=== PATIENT | female | born 2000 | race Two or more races ===

== ENCOUNTER 2024-10-22 22:14 | Emergency (ER) | payer OTHER, SELFPAY ==
[2024-10-22 22:14] VITALS: BMI 32.9
[2024-10-22 22:49] VITALS: BP 111/77; PULSE 87; RESP 18; TEMP 36.9; O2SAT 99
--- NOTE | 2024-10-22 22:53 | PD.EDRME ---
Rapid Medical Screening Exam RME Arrival date/time: 10/22/24 22:14 24-year-old female presents emergency department complaining of epigastric pain that radiates to her back and has been ongoing for several weeks. Chief Complaint: Abdominal Pain Time Seen by Provider: 10/22/24 22:50 Vital signs: Vital Signs Temperature 98.5 F 10/22/24 22:49 Pulse Rate 87 10/22/24 22:49 Respiratory Rate 18 10/22/24 22:49 Blood Pressure 111/77 10/22/24 22:49 Pulse Oximetry (%) 99 10/22/24 22:49 Oxygen Delivery Method Room Air 10/22/24 22:49 Vital signs reviewed by provider: Yes
[2024-10-22 23:34] LABS: Basophils # (Auto) 0.1 Thou/mm3 (0.0-0.2); Basophils % (Auto) 1 % (0-2.5); Eosinophils # (Auto) 0.1 Thou/mm3 (0.0-0.5); Eosinophils % (Auto) 1 % (0-10); Hematocrit 37.5 % (36.0-46.0); Immature Granulocytes % (Auto) 1 % (0-0); Immature Granulocytes Auto 0.04 Thou/mm3 (0.00-0.00); Lymphocytes # (Auto) 2.7 Thou/mm3 (1.0-4.8); Lymphocytes % (Auto) 31 % (10-50); Mean Corpuscular Hemoglobin 25.6 pg (25.0-35.0); Mean Corpuscular Volume 80 fL (80-100); Monocytes # (Auto) 0.7 Thou/mm3 (0.0-0.8); Monocytes % (Auto) 8 % (0-12); Neutrophils # (Auto) 5.1 Thou/mm3 (1.8-7.7); Neutrophils % (Auto) 60 % (37-80); Nucleated Red Blood Cell % 0 /100 WBC (0); Platelet Count 384 Thou/mm3 (140-440); RDW Standard Deviation 39.4 fL (36.4-46.3); Red Blood Count 4.69 Miln/mm3 (4.00-5.20); White Blood Count 8.6 Thou/mm3 (3.6-11.0)
[2024-10-22 23:36] LABS: Collection Type, Urine Clean Catch
[2024-10-22 23:43] LABS: Bacteria,Urine Rare; Bilirubin,Urine Negative (Negative); Blood,Urine Trace (Negative); Clarity,Urine Clear (Clear/Hazy); Color,Urine Yellow (Lt Yel-Yel); Culture Indicated,Urine Not Indicated; Glucose, Urine Negative (Negative); Ketones,Urine Trace (Negative); Leukocyte Esterase,Urine Negative (Negative); Nitrite,Urine Negative (Negative); PH,Urine 5.5 (5.0-7.0); Protein,Urine Trace (Neg - Trace); RBC,Urine 2 /hpf (0-3); Specific Gravity,Urine 1.038 (1.001-1.035); Squamous Epithelial Cell,Urine < 1 /hpf (0-5); Urobilinogen,Urine Negative mg/dL (0.0-1.0); WBC,Urine 1 /hpf (0-5)
[2024-10-22 23:45] LABS: HCG,Qualitative Serum Negative
[2024-10-22 23:52] LABS: Alanine Aminotransferase 22 U/L (10-49); Albumin, Serum 4.7 gm/dL (3.5-5.0); Albumin/Globulin Ratio 1.7 (1.2-2.2); Alkaline Phosphatase 115 U/L (46-116); Anion Gap 7 (7-16); Aspartate Amino Transferase 15 U/L (0-34); BUN/Creatinine Ratio 10 Ratio (12-20); Bilirubin,Total 0.3 mg/dL (0.3-1.2); Blood Urea Nitrogen 9 mg/dL (9-23); Calcium 10.1 mg/dL (8.3-10.6); Calcium (Corrected) 10.1 mg/dL (8.5-10.1); Carbon Dioxide 26.6 mMol/L (20.0-31.0); Chloride 105 mMol/L (98-107); Creatinine (Component) 0.9 mg/dL (0.6-1.3); Estimated Creatinine Clearance 97.1 mL/min (>60); Globulin 2.8 gm/dL (2.3-3.5); Glucose 98 mg/dL (74-106); Lipase 38 U/L (12-53); Osmolality,Calculated 276 (275-295); Potassium 3.4 mMol/L (3.4-5.1); Sodium 139 mMol/L (136-145); Total Protein 7.5 gm/dL (5.7-8.2); eGFR > 60 See Note
--- NOTE | 2024-10-23 00:05 | XR_ITS ---
Examination: Abdomen sonogram, Limited Date and time of exam: October 23, 2024 0112 hrs. Indications: Right upper abdominal pain beginning 2 weeks ago Technique: Real-time baldwin scale transabdominal sonographic images of the upper abdomen obtained. Findings: Negative for cholelithiasis Gallbladder wall 0.3 cm no edema Common bile duct 0.46 cm Pancreas obscured by bowel gas Liver 15.8 cm no liver lesions Normal hepatopedal portal venous flow Patent IVC Impression: Normal gallbladder Normal common bile duct
--- NOTE | 2024-10-23 02:19 | PRELIM_ITS ---
Gallbladder ultrasound with doppler and wave doppler spectral analysis. October 23, 2024 0112 hours Clinical history: Abdominal pain Comparison: None.Findings:Echogenic liver. Gallbladder wall thickeni ng. No gallbladder calculus or pericholecystic fluid is identified. The common duct is normal in johnnie citlalli at 4.6 mm. No free fluid is demonstrated on the submitted images.The portal vein is patent with h epatopetal flow and normal wave Doppler spectral analysis.The inferior vena cava is patent.House sig n is not available at the time of this report.Impression:Liver steatosis.Gallbladder wall thickening, if acute cholecystitis is clinically suspected consider correlation with HIDA scan. Report Bárbara espinoza Signed By: Nick Ko 10/23/2024 2:17:26 AM [EST]
--- NOTE | 2024-10-23 02:35 | PD.EDABDPN ---
ED Abdominal Pain RME/HPI General Chief Complaint: Abdominal Pain Stated complaint: GALLSTONES PAIN Time seen by provider: 10/22/24 22:50 Arrival date/time: 10/22/24 22:14 24-year-old female presents emergency department complaining of epigastric pain that radiates to her back and has been ongoing for several weeks. Source: patient Mode of arrival: ambulatory Limitations: no limitations RME / HPI RME / HPI narrative: 10/22/24 22:14 24-year-old female presents emergency department complaining of epigastric pain that radiates to her back and has been ongoing for several weeks. Related Data Home Medications ?Medication ?Instructions ?Recorded ?Confirmed vits no.124-ferrous fum 1 tab PO QDAY 12/17/23 12/20/23 27 mg iron-folic acid 800 mcg tablet ( Vitamin) Previous Rx's ?Medication ?Instructions ?Recorded ibuprofen 600 mg tablet 600 mg PO Q8H PRN pain #20 tabs 10/23/24 Allergies Allergy/AdvReac Type Severity Reaction Status Date / Time No Known Allergies Allergy Verified 12/17/23 17:46 Review of Systems Review of Systems Systems Reviewed: All systems reviewed, normal except as documented Constitutional Constitutional: Reports system reviewed and no additional complaints, except as documented, Denies body ache(s), Denies chills and Denies fever(s) Eyes Eyes: Reports system reviewed and no additional complaints, except as documented and Denies change in vision ENT Ears, Nose, Mouth, and Throat: Reports system reviewed and no additional complaints, except as documented, Denies disequilibrium, Denies dizziness, Denies sore throat and Denies vertigo Cardiovascular Cardiovascular: Reports system reviewed and no additional complaints, except as documented, Denies chest pain and Denies dyspnea Respiratory Respiratory: Reports system reviewed and no additional complaints, except as documented, Denies chest congestion, Denies cough and Denies dyspnea Gastrointestinal Gastrointestinal: Reports system reviewed and no additional complaints, except as documented, Reports abdominal pain, Denies nausea and Denies vomiting Musculoskeletal Musculoskeletal: Reports system reviewed and no additional complaints, except as documented, Denies abnormal gait and Denies arthralgias Integumentary/Breasts Skin/Breast: Reports system reviewed and no additional complaints, except as documented, Denies erythema, Denies rash and Denies wounds Neurologic Neurologic: Reports system reviewed and no additional complaints, except as documented, Denies abnormal gait, Denies disequilibrium, Denies dizziness and Denies vertigo Past Medical History Past Medical History NEUROLOGIC: Negative Neurological Disorders or Seizures CARDIAC: Negative Cardiac Disorders or Congestive Heart Failure RESPIRATORY: Negative Chronic Obstructive Pulmonary Disease (COPD) GASTROINTESTINAL: Negative Gastrointestinal Disorders or Hepatitis GENITOURINARY: Negative Genitourinary Disorders or Renal Disease MUSCULOSKELETAL: Negative Musculoskeletal Disorders ENDOCRINE: Negative Endocrine Disorders, Diabetes Mellitus Type 1 or Diabetes Mellitus Type 2 HEMATOLOGIC: Negative Blood Disorders PSYCHO/SOCIAL: Positive Depression and Anxiety OTHER HISTORY: Negative Autoimmune Disease, Blood Transfusions, Blood Transfusion Reaction, Anesthesia Reactions, Human Immunodeficiency Virus (HIV), Chicken Pox, Measles, Mumps, Rubella (Qatari Measles), Pertussis or Clostridium Difficile Family History FAMILY HISTORY: Positive Family Cardiac Disorders (maternal grandmother - heart condition unk); Negative Family Psychiatric Problems, Family Respiratory Disorders, Family Gastrointestinal Problems, Family Cancer or Family Surgery Surgical History SURGICAL: Negative Section Social History SMOKING STATUS: Never smoker ED Exam General Limitations: Present no limitations General appearance: Present alert and in no apparent distress Head Head exam: Present atraumatic Eye Eye exam: Present normal appearance, PERRL and EOMI ENT ENT exam: Present normal exam, normal oropharynx and mucous membranes moist Neck Neck exam: Present normal inspection, full ROM and trachea midline Chest Chest inspection: Present normal inspection and symmetric chest wall rise Respiratory Respiratory exam: Present normal lung sounds bilaterally Cardiovascular Cardiovascular exam: Present regular rate, normal rhythm and normal heart sounds Abdominal Exam Abdominal exam: Present soft and normal bowel sounds; Absent tenderness or guarding Extremities Exam Extremities exam: Present normal inspection and full ROM Back Exam Back exam: Present normal inspection and full ROM Neurological Exam Neurological exam: Present alert, oriented X3 and CN II-XII intact Psychiatric Psychiatric exam: Present normal affect and normal mood Skin Skin exam: Present warm, dry, intact and normal color Course Quality Measures none Orders Category Date Time Status US gall bladder Stat Exams 10/23/24 00:05 Taken CBC Stat Lab 10/22/24 23:04 Completed CMP [Comprehensive Metabolic Panel] Stat Lab 10/22/24 23:04 Completed HCG,Qualitative Serum Stat Lab 10/22/24 23:04 Completed Lipase Stat Lab 10/22/24 23:04 Completed Urinalysis, C/S if Indicated Stat Lab 10/22/24 23:30 Completed Vital Signs Vital signs: Vital Signs Temperature 98.5 F 10/22/24 22:49 Pulse Rate 87 10/22/24 22:49 Respiratory Rate 18 10/22/24 22:49 Blood Pressure 111/77 10/22/24 22:49 Pulse Oximetry (%) 99 10/22/24 22:49 Oxygen Delivery Method Room Air 10/22/24 22:49 99% room air within normal limits Abdominal Pain MDM MDM Narrative MDM Narrative:: 24-year-old female presents emergency department complaining of epigastric pain that radiates to her back and has been ongoing for several weeks. CBC was unremarkable for any leukocytosis. CMP was unremarkable for any elevated LFTs or gross electrolyte abnormalities. Urinalysis was unremarkable. Ultrasound gallbladder was unremarkable for any gallstones. Patient appears nontoxic and is hemodynamically stable. Patient discharged ducted to follow-up with primary care provider return to emergency department for any worsening symptoms as needed. Patient data External records reviewed:: [facility] previous records Clinical information provided by:: patient Social determinants that could affect healthcare access:: none Patient has the following chronic illnesses:: See chart How is presenting disease/condition affected by chronic disease/condition?: uneffected by Evaluation data The following diagnostics were reviewed and interpreted by me:: lab results and radiology exam(s) Lab and/or radiology exams considered but not ordered:: Ordered Interpretation Summary: Interpreted by me Medications / Prescriptions Medications or Prescriptions considered but not ordered:: N/A Medication administrations:: N/A Consultations Consultation(s) initiated? (list below): No Diagnosis Differential diagnosis abdominal pain: abdominal pain, acute appendicitis, calculus of kidney, constipation, diverticulitis, endometriosis, gastroenteritis, pancreatitis and small bowel obstruction Most likely diagnosis given after review of the tests above:: Abdominal pain Admission Indicated Admission indicated?: not indicated Admission Request Was there a request for admission?: No Disposition Plan Disposition Plan: Discharge Discharge Attestation Discharge Attestation: The patient and all family members were given an opportunity to ask questions and understood the discharge instructions. Discharge instructions specifically effects, indications for sooner follow up or return to the emergency department, and the expected course of current diagnosis. Patient condition: Stable Discharge Plan Plan Patient Disposition: HOME (Self Care) Disposition Comment: Stable Prescriptions/Referrals Prescriptions/Med Rec: New ibuprofen 600 mg tablet 600 mg PO Q8H PRN (Reason: pain) Qty: 20 0RF No Action Vitamin 27 mg iron- 800 mcg Tablet 1 tab PO QDAY Referrals: Saul Olivarez MD [Primary Care Provider] - In 1 week Problem List Clinical Impression: Abdominal pain Patient/Caregiver Discharge Instructions Discharge Activity: activity as tolerated Education Materials: Abdominal Pain Additional Instructions: Your ultrasound did not show any gallbladder stones. Take ibuprofen or Tylenol as needed for pain. Follow-up with primary care provider and request H. pylori testing or referral to GI specialist if symptoms persist. Return to emergency department for any worsening symptoms or as needed. Print Language: Irish Stand Alone Forms: Lyly Award Info., Patient Portal Info Letter PA/MOBILE HEAVY EQUIPMENT OPERATOR Supervising Physician PA/MOBILE HEAVY EQUIPMENT OPERATOR Supervising Physician: Dr. Wolfe
[2024-10-23 02:47] VITALS: BP 116/72; PULSE 76; RESP 18; TEMP 36.7; O2SAT 98
== END 2024-10-23 02:48 | disposition home or self-care (01) ==
PROVIDERS: Emergency Provider Emergency Medicine; PCP Family Medicine
DX: R10.13 Epigastric pain (principal)
CPT/HCPCS: 36415; 76705; 80053; 81001; 83690; 84703; 85025; 99284

== ENCOUNTER 2024-10-25 18:07 | Emergency (ER) | payer OTHER, SELFPAY ==
--- NOTE | 2024-10-25 18:33 | XR_ITS ---
Examination: CT abdomen and pelvis without contrast. Coronal 3-D reconstructions. Sagittal 2-D reconstructions. Date and time of exam: October 25, 2024 1952 hrs. Indications: Onset flank pain radiating to the abdomen beginning 2 weeks ago CTDI: vol (mGy): 12.8 DLP: (mGycm): 745 Technique: Axial images of the abdomen have been obtained, 3 mm slice thickness Intravenous contrast material has not been administered. Low dose protocols were performed. One or more of the following dose reduction techniques were used; automated exposure control, adjustment of the mA and/or KV according to patient size, use of iterative reconstruction technique. Findings: No focal liver or splenic lesions No gallstones No pancreatic or adrenal mass No renal or ureteral calculi, no hydronephrosis Aorta normal size No bowel obstruction Normal appendix No diverticulitis No pelvic mass Osseous structures intact Impression: No renal or ureteral calculi, no hydronephrosis Normal appendix No bladder mass or bladder calculi
[2024-10-25 19:01] VITALS: BP 129/71; PULSE 87; RESP 20; TEMP 37.2; O2SAT 99
[2024-10-25 19:03] LABS: Basophils # (Auto) 0.1 Thou/mm3 (0.0-0.2); Basophils % (Auto) 0 % (0-2.5); Eosinophils # (Auto) 0.1 Thou/mm3 (0.0-0.5); Eosinophils % (Auto) 0 % (0-10); Hematocrit 36.8 % (36.0-46.0); Hemoglobin 11.7 g/dL (12.0-16.0); Immature Granulocytes % (Auto) 0 % (0-0); Immature Granulocytes Auto 0.06 Thou/mm3 (0.00-0.00); Lymphocytes # (Auto) 1.7 Thou/mm3 (1.0-4.8); Lymphocytes % (Auto) 13 % (10-50); Mean Corpuscular HGB Conc 31.8 g/dl (31.0-37.0); Mean Corpuscular Hemoglobin 25.7 pg (25.0-35.0); Mean Corpuscular Volume 81 fL (80-100); Monocytes # (Auto) 0.9 Thou/mm3 (0.0-0.8); Monocytes % (Auto) 7 % (0-12); Neutrophils # (Auto) 10.8 Thou/mm3 (1.8-7.7); Neutrophils % (Auto) 79 % (37-80); Nucleated Red Blood Cell % 0 /100 WBC (0); Platelet Count 350 Thou/mm3 (140-440); RDW Standard Deviation 39.8 fL (36.4-46.3); Red Blood Count 4.56 Miln/mm3 (4.00-5.20); White Blood Count 13.6 Thou/mm3 (3.6-11.0)
[2024-10-25] MEDS: ACETAMINOPHEN w/COD 300-30 TABLET 2 TAB PO (19:06)
[2024-10-25] MEDS: ONDANSETRON ODT 4 MG TABRAP PO (19:08)
[2024-10-25 19:22] LABS: Alanine Aminotransferase 120 U/L (10-49); Albumin, Serum 4.9 gm/dL (3.5-5.0); Albumin/Globulin Ratio 1.8 (1.2-2.2); Alkaline Phosphatase 147 U/L (46-116); Anion Gap 8 (7-16); Aspartate Amino Transferase 236 U/L (0-34); BUN/Creatinine Ratio 13 Ratio (12-20); Bilirubin,Total 0.6 mg/dL (0.3-1.2); Blood Urea Nitrogen 9 mg/dL (9-23); Calcium 9.5 mg/dL (8.3-10.6); Calcium (Corrected) 9.5 mg/dL (8.5-10.1); Carbon Dioxide 25.5 mMol/L (20.0-31.0); Chloride 104 mMol/L (98-107); Creatinine (Component) 0.7 mg/dL (0.6-1.3); Globulin 2.7 gm/dL (2.3-3.5); Glucose 117 mg/dL (74-106); Magnesium 2.1 mg/dL (1.6-2.6); Osmolality,Calculated 273 (275-295); Sodium 137 mMol/L (136-145); Total Protein 7.6 gm/dL (5.7-8.2); eGFR > 60 See Note
[2024-10-25 19:38] LABS: HCG,Qualitative Serum Negative
[2024-10-25 21:50] LABS: Collection Type, Urine Clean Catch
[2024-10-25 22:19] LABS: HCG Qualitative,Urine Negative
[2024-10-25 22:20] LABS: Bilirubin,Urine Negative (Negative); Blood,Urine Negative (Negative); Clarity,Urine Turbid (Clear/Hazy); Color,Urine Lt-Yellow (Lt Yel-Yel); Culture Indicated,Urine Not Indicated; Glucose, Urine Negative (Negative); Ketones,Urine Negative (Negative); Leukocyte Esterase,Urine Positive (Negative); Nitrite,Urine Negative (Negative); Protein,Urine Negative (Neg - Trace); RBC,Urine 3 /hpf (0-3); Specific Gravity,Urine 1.008 (1.001-1.035); Squamous Epithelial Cell,Urine 4 /hpf (0-5); Urobilinogen,Urine Negative mg/dL (0.0-1.0); WBC,Urine 3 /hpf (0-5)
[2024-10-25 22:48] VITALS: BP 126/89; PULSE 89; RESP 18; TEMP 37.2; O2SAT 99; BMI 31.8
--- NOTE | 2024-10-25 22:56 | EDNOTE_ITS ---
ED Abdominal Pain RME/HPI General Chief Complaint: Abdominal Pain Stated complaint: Abdominal pain X 2 weeks, nausea Time seen by provider: 10/25/24 18:14 Arrival date/time: 10/25/24 18:07 RME / HPI RME / HPI narrative: This section includes all my notes and documentations, including HPI, PE, and ED course. Kvng Wolfe MD HPI: 24-year-old female here with a couple week history of upper abdominal pain and nausea. No fever. No history of abdominal surgery. No urinary symptoms. No other complaints. ROS: All negative except as documented in HPI. Physical Exam: General: Alert and oriented. No acute distress when remaining still. Eyes: Conjunctivae and lids clear. ENT: No nasal congestion. Neck: Supple. Heart: RRR. Lungs: No respiratory distress. Good air movement. No rhonchi, wheezing, rales. Abdomen: Soft with epigastric tenderness. Normal bowel sounds. No distension. No rebound or guarding. Back: No CVA tenderness. Skin: Warm and dry. Neuro: Alert and oriented X 3. I reviewed all diagnostic test results. My review of the abdominal CT report is no acute findings. My review of the recent GB ultrasound report is no acute findings. Blood tests and urine tests unremarkable. At this point, diagnoses include gastritis versus GERD. Treatment here included Zofran and two Tylenol #3. Significant improvement noted. Recommended more outpatient workup. Based on my best medical judgment, made decision no further evaluation or treatment indicated at this time. Patient understands and agrees to the discharge instructions customized and printed, see below. Discharge instructions from Dr. Wolfe: ?After extensive evaluation, exact cause of your symptoms was not determined. But here is no emergency such as appendicitis needing emergent surgery. --I believe your symptoms are due to stomach ulcer versus acid reflux, see attached handouts. ?To help heal the ulcer, take Omeprazole 40 mg every morning and Famotidine 40 mg at bedtime for a month. ?Zofran for nausea/vomiting.? Clear liquid diet for 24 hours.? Then slowly advance diet as tolerated. Tylenol with codeine for severe pain. ?Avoid food and beverages that can trigger and worsen ulcers.? See attached h andouts. ?See a private doctor on 10/29/2024. To make sure there is no serious intra-abdominal condition, ask for help with more investigation not available here in the ER. Such as EGD or scoping the stomach, colonoscopy or scoping the colon, and referral to see irrigation engineer. ?Seek immediate medical care with worsening or with any concerns. Kvng Wolfe MD Related Data Home Medications ?Medication ?Instructions ?Recorded ?Confirmed vits no.124-ferrous fum 1 tab PO QDAY 12/17/23 12/20/23 27 mg iron-folic acid 800 mcg tablet ( Vitamin) Previous Rx's ?Medication ?Instructions ?Recorded ibuprofen 600 mg tablet 600 mg PO Q8H PRN pain #20 tabs 10/23/24 acetaminophen 300 mg-codeine 30 mg 2 tab PO TID PRN pain #20 tabs 10/25/24 tablet famotidine 40 mg tablet 40 mg PO QDAY #30 tabs 10/25/24 omeprazole 40 mg capsule,delayed 40 mg PO QDAY #30 caps 10/25/24 release ondansetron 4 mg disintegrating 4 mg PO TID PRN nausea and 10/25/24 tablet vomiting 5 days #10 tabs Allergies Allergy/AdvReac Type Severity Reaction Status Date / Time No Known Allergies Allergy Verified 12/17/23 17:46 Course Quality Measures none Orders Category Date Time Status CT abdomen pelvis wo con Stat Exams 10/25/24 18:33 Completed CBC Stat Lab 10/25/24 18:45 Completed CMP [Comprehensive Metabolic Panel] Stat Lab 10/25/24 18:45 Completed HCG Qualitative,Urine Stat Lab 10/25/24 21:35 Completed HCG,Qualitative Serum Stat Lab 10/25/24 18:45 Completed Magnesium Stat Lab 10/25/24 18:45 Completed UA, C/S IF [Urinalysis, C/S if Indicated] Stat Lab 10/25/24 21:35 Completed ACETAMINOPHEN w/COD 300-30 [Tylenol w/Cod #3] Med 10/25/24 18:33 Discontinued 2 tab PO X1 ONE Ondansetron Odt [Zofran Odt] Med 10/25/24 18:33 Discontinued 4 mg PO X1 ONE Vital Signs Vital signs: Vital Signs Temperature 98.9 F 10/25/24 19:01 Pulse Rate 87 10/25/24 19:01 Respiratory Rate 20 10/25/24 19:01 Blood Pressure 129/71 10/25/24 19:01 Pulse Oximetry (%) 99 10/25/24 19:01 Oxygen Delivery Method Room Air 10/25/24 19:01 Abdominal Pain MDM Patient data External records reviewed:: [facility] previous records Clinical information provided by:: patient and parent Social determinants that could affect healthcare access:: none Patient has the following chronic illnesses:: None How is presenting disease/condition affected by chronic disease/condition?: no chronic disease Evaluation data The following diagnostics were reviewed and interpreted by me:: lab results and radiology exam(s) Lab and/or radiology exams considered but not ordered:: None Interpretation Summary: Gastritis Medications / Prescriptions Medications or Prescriptions considered but not ordered:: None Medication administrations:: Medication Administration History Discontinued Medications Acetaminophen/Codeine Phosphate (Acetaminophen W/Cod 300-30 Tablet) 2 tab PO X1 ONE Stop: 10/25/24 18:34 Last Admin: 10/25/24 19:06 Dose: 2 tab Documented By: KAYLYN Ondansetron HCl (Ondansetron Odt 4 Mg Tabrap) 4 mg PO X1 ONE; Protocol Stop: 10/25/24 18:34 Last Admin: 10/25/24 19:08 Dose: 4 mg Documented By: KAYLYN [place] and two Tylenol #3 Consultations Consultation(s) initiated? (list below): No Diagnosis Differential diagnosis abdominal pain: acute appendicitis, calculus of kidney, constipation, diverticulitis, endometriosis, gastroenteritis, pancreatitis, small bowel obstruction and other (Gastritis, GERD, PUD) Most likely diagnosis given after review of the tests above:: Gastritis Admission Indicated Admission indicated?: not indicated Explain why admission is indicated or not indicated:: Admission criteria not met Admission Request Was there a request for admission?: No Disposition Plan Disposition Plan: Discharge Discharge Attestation Discharge Attestation: The patient and all family members were given an opportunity to ask questions and understood the discharge instructions. Discharge instructions specifically effects, indications for sooner follow up or return to the emergency department, and the expected course of current diagnosis. Patient condition: Stable Discharge Plan Plan Patient Disposition: HOME (Self Care) Prescriptions/Referrals Prescriptions/Med Rec: New famotidine 40 mg tablet 40 mg PO QDAY Qty: 30 0RF acetaminophen-codeine 300-30 mg tablet 2 tab PO TID MDD 6 PRN (Reason: pain) Qty: 20 0RF omeprazole 40 mg capsule,delayed release(DR/EC) 40 mg PO QDAY Qty: 30 0RF ondansetron 4 mg tablet,disintegrating 4 mg PO TID PRN (Reason: nausea and vomiting) 5 Days Qty: 10 0RF No Action Vitamin 27 mg iron- 800 mcg Tablet 1 tab PO QDAY ibuprofen 600 mg tablet 600 mg PO Q8H PRN (Reason: pain) Qty: 20 0RF Referrals: No Primary/Family,Physician [Primary Care Provider] - In 1 week Problem List Clinical Impression: Abdominal pain Patient/Caregiver Discharge Instructions Discharge Activity: activity as tolerated Education Materials: ED GERD (Adult), ED Gastritis (Adult), ED PEPTIC ULCER vs GASTRITIS Additional Instructions: Discharge instructions from Dr. Wolfe: ?After extensive evaluation, exact cause of your symptoms was not determined. But here is no emergency such as appendicitis needing emergent surgery. --I believe your symptoms are due to stomach ulcer versus acid reflux, see attached handouts. ?To help heal the ulcer, take Omeprazole 40 mg every morning and Famotidine 40 mg at bedtime for a month. ?Zofran for nausea/vomiting.? Clear liquid diet for 24 hours.? Then slowly advance diet as tolerated. Tylenol with codeine for severe pain. ?Avoid food and beverages that can trigger and worsen ulcers.? See attached handouts. ?See a private doctor on 10/29/2024. To make sure there is no serious intra-abdominal condition, ask for help with more investigation not available here in the ER. Such as EGD or scoping the stomach, colonoscopy or scoping the colon, and referral to see irrigation engineer. ?Seek immediate medical care with worsening or with any concerns. Print Language: Mosotho Stand Alone Forms: Lyly Award Info., Patient Portal Info Letter
[2024-10-25 23:04] VITALS: RESP 18
== END 2024-10-25 23:05 | disposition home or self-care (01) ==
PROVIDERS: Emergency Provider Emergency Medicine
DX: R10.10 Upper abdominal pain, unspecified (principal); R11.0 Nausea
CPT/HCPCS: 36415; 74176; 80053; 81001; 81025; 83735; 84703; 85025; 99284; Q0162; A9270